=== PATIENT | male | born 1990 | race Caucasian/White ===

== ENCOUNTER → 2020-05-21 | Outpatient (CLI) | payer BC | LOC: DX 05:41 → EDSTATUS 05-25 07:00 | PROVIDERS: ATTEND Podiatrist Foot Surgery | DX: Z01.812 Encounter for preprocedural laboratory examination (principal); Z20.828 Contact with and (suspected) exposure to other viral communicable diseases; Z01.818 Encounter for other preprocedural examination; M20.11 Hallux valgus (acquired), right foot; M20.41 Other hammer toe(s) (acquired), right foot; D23.71 Other benign neoplasm of skin of right lower limb, including hip; M79.671 Pain in right foot | CPT/HCPCS: U0002 ==